=== PATIENT | female | born 1970 | race Caucasian/White ===

== ENCOUNTER 2016-10-06 23:12 | Emergency (ER) | payer OTHER ==
[~2016-10-06] VITALS: Ht 160 cm; Wt 85.0 kg
[~2016-10-06 23:12] MED LIST: ATEN25TA PO; BACL10TA PO; CELE1CAP8 PO; DULO1CAP3 PO; FEXO15TA PO; LYRI150C PO; MIRA25TA PO; OMEP20TA PO; TIZA4CAP3 PO; TOPI1TAB36 PO
[2016-10-06 23:19] VITALS: BP 123/71; PULSE 91; RESP 18; TEMP 98.6; O2SAT 99
--- NOTE | 2016-10-07 00:08 | PD ---
HPI Chief Complaint: Hip Injury Time Seen by Provider: 23:28 Travel History International Travel<30 days: No Contact w/Intl Traveler<30days: No Traveled to known affect area: No History of Present Illness HPI 45-year-old female complains of left hip pain. Patient fell off her wheelchair into the left side this afternoon. Patient denies loss of consciousness. Patient denies any headache or neck pain. Patient denies any chest pain or shortness of breath. Patient denies abdominal pain. Patient states the pain is sharp pain localized to left hip area patient denies any pain radiation. Patient has history of MS. Patient also has history of GERD and anemia. PFSH Past Medical History Arthritis: No Autoimmune Disease: Yes (PT HAS MS) Blood Disorders: No Anxiety: No Depression: Yes Heart Rhythm Problems: No Cancer: No Cardiovascular Problems: No High Cholesterol: No Chemotherapy: No Chest Pain: No Diabetes: No Diminished Hearing: No Endocrine: No Gastrointestinal Disorders: Yes GERD: Yes Genitourinary: Yes Hiatal Hernia: No Immune Disorder: Yes Kidney Stones: No Musculoskeletal: No Neurologic: Yes Psychiatric: Yes Reproductive: No Respiratory: Yes Immunizations Current: Yes Migraines: No Radiation Therapy: No Renal Failure: No Sleep Apnea: Yes Thyroid Disease: No Ulcer: No ?: Not Past Surgical History Abdominal Surgery: No AICD: No Arteriovenous Shunt: No Cardiac Surgery: No Ear Surgery: No Endocrine Surgery: No Eye Surgery: No Genitourinary Surgery: No Gynecologic Surgery: No Insulin Pump: No Joint Replacement: No Oral Surgery: No Pacemaker: No Thoracic Surgery: No Other Surgery: Yes (C SECTIONX2, T AND A, LEFT FOOT BONE REMOVAL , HEART ABLAISION) Social History Alcohol Use: No Tobacco Use: No Substance Use: No Allergies-Medications (Allergen,Severity, Reaction): Coded Allergies: Ofloxacin (Verified Allergy, Severe, STOMACH ACHE, 10/06/16) Uncoded Allergies: TAPE- ADHISIVE (Allergy, Mild, BLISTERS, 03/31/07) Reported Meds & Prescriptions Reported Meds & Active Scripts Active Reported Tecfidera (Dimethyl Fumarate) 240 Mg Cap 240 Mg PO BID Tizanidine (Tizanidine HCl) 4 Mg Cap 4 Mg PO DAILY Myrbetriq (Mirabegron) 25 Mg Tab 25 Mg PO DAILY Mayuri Allergy (Fexofenadine HCl) 180 Mg Tab 180 Mg PO DAILY Celecoxib 200 Mg Cap 200 Mg PO DAILY Topiramate 50 Mg Tab 50 Mg PO BID Duloxetine DR (Duloxetine HCl) 60 Mg Capdr 60 Mg PO DAILY Lyrica (Pregabalin) 150 Mg Cap 150 Mg PO BID Atenolol 25 Mg Tab 25 Mg PO BID Omeprazole 20 Mg Tab 20 Mg PO DAILY Baclofen 10 Mg Tab 10 Mg PO BID PRN Review of Systems General / Constitutional: No: Fever Eyes: No: Visual changes HENT: No: Headaches Cardiovascular: No: Chest Pain or Discomfort Respiratory: No: Shortness of Breath Gastrointestinal: No: Abdominal Pain Genitourinary: No: Dysuria Musculoskeletal: Positive: Pain Skin: No Rash Neurologic: No: Weakness Psychiatric: No: Depression Endocrine: No: Polydipsia Hematologic/Lymphatic: No: Easy Bruising Physical Exam Narrative GENERAL: Well-nourished, well-developed patient. SKIN: Warm and dry. HEAD: Normocephalic. EYES: No scleral icterus. No injection or drainage. NECK: Supple, trachea midline. No JVD or lymphadenopathy. CARDIOVASCULAR: Regular rate and rhythm without murmurs, gallops, or rubs. RESPIRATORY: Breath sounds equal bilaterally. No accessory muscle use. GASTROINTESTINAL: Abdomen soft, non-tender, nondistended. MUSCULOSKELETAL: Patient has moderate tenderness on palpation lateral aspect left hip joint. Limited range of motion the left hip joint secondary to pain. BACK: Nontender without obvious deformity. No CVA tenderness. Data Data Last Documented VS Vital Signs Date Time Temp Pulse Resp B/P Pulse Ox O2 Delivery O2 Flow Rate FiO2 10/06/16 23:22 99 Room Air 10/06/16 23:19 98.6 91 18 123/71 Orders Complete Blood Count With Diff (10/06/16 23:52) Comprehensive Metabolic Panel (10/06/16 23:52) Prothrombin Time / Inr (Pt) (10/06/16 23:52) Act Partial Throm Time (Ptt) (10/06/16 23:52) Chest, Single Ap (10/06/16 23:52) Iv Access Insert/Monitor (10/06/16 23:52) Ecg Monitoring (10/06/16 23:52) Oximetry (10/06/16 23:52) Hip, Uni(Ap&Lat) W Ap Pelvis (10/06/16 23:52) Labs Laboratory Tests Test 10/07/16 00:30 White Blood Count 10.2 TH/MM3 Red Blood Count 4.33 MIL/MM3 Hemoglobin 10.8 GM/DL Hematocrit 32.9 % Mean Corpuscular Volume 76.1 FL Mean Corpuscular Hemoglobin 24.9 PG Mean Corpuscular Hemoglobin 32.7 % Concent Red Cell Distribution Width 18.4 % Platelet Count 167 TH/MM3 Mean Platelet Volume 9.7 FL Neutrophils (%) (Auto) 76.6 % Lymphocytes (%) (Auto) 16.5 % Monocytes (%) (Auto) 6.1 % Eosinophils (%) (Auto) 0.5 % Basophils (%) (Auto) 0.3 % Neutrophils # (Auto) 7.8 TH/MM3 Lymphocytes # (Auto) 1.7 TH/MM3 Monocytes # (Auto) 0.6 TH/MM3 Eosinophils # (Auto) 0.1 TH/MM3 Basophils # (Auto) 0.0 TH/MM3 CBC Comment AUTO DIFF Differential Comment AUTO DIFF CONFIRMED Ovalocytes 1+ Prothrombin Time 10.6 SEC Prothromb Time International 1.0 RATIO Ratio Activated Partial 22.6 SEC Thromboplast Time Sodium Level 142 MEQ/L Potassium Level 3.7 MEQ/L Chloride Level 110 MEQ/L Carbon Dioxide Level 25.8 MEQ/L Anion Gap 6 MEQ/L Blood Urea Nitrogen 17 MG/DL Creatinine 0.67 MG/DL Estimat Glomerular Filtration 95 ML/MIN Rate Random Glucose 91 MG/DL Calcium Level 8.9 MG/DL Total Bilirubin 0.3 MG/DL Aspartate Amino Transf 14 U/L (AST/SGOT) Alanine Aminotransferase 21 U/L (ALT/SGPT) Alkaline Phosphatase 59 U/L Total Protein 7.0 GM/DL Albumin 3.5 GM/DL [facility] Medical Decision Making Medical Screen Exam Complete: Yes Emergency Medical Condition: Yes Interpretation(s) 2:17 AM. X-ray left hip shows no acute bony injury. CBC WBC 10.2. Hemoglobin 10.8 hematocrit 32.9. MCV 76. Normal differential. CMP within normal limit. Differential Diagnosis Differential diagnosis including contusion, fracture, dislocation. Narrative Course 45-year-old female with left hip injury status post fall off a wheelchair this afternoon. Diagnosis Primary Impression: Contusion of left hip Qualified Code: S70.02XA - Contusion of left hip, initial encounter Patient Instructions: General Instructions Additional Instructions: Take medication as needed for pain. Follow-up with orthopedist if persistent problem. Return if worse. Med/Other Pt SpecificInfo: Prescription(s) given Scripts Acetaminophen-Codeine (Tylenol-Codeine #3)300-30 mg Tab1 Tab PO Q6HR PRN (PAIN SCALE 1 TO 10) #20 TAB Prov:Ayaan Pena MD 10/07/16 Disposition: 01 DISCHARGE HOME Condition: Stable Ayaan Pena MD Oct 07, 2016 00:08
[2016-10-07] MEDS ORDERED: DIME240C PO (00:16)
--- NOTE | 2016-10-07 00:45 | RADRPT ---
EXAM DATE/TIME: 10/07/2016 00:34 [facility] COMPARISON: No previous studies available for comparison. INDICATIONS : Shortness of breath. MEDICAL HISTORY : Multiple sclerosis. SURGICAL HISTORY : None. ENCOUNTER: Initial ACUITY: 1 day PAIN SCORE: 0/10 LOCATION: Bilateral chest FINDINGS: A single view of the chest demonstrates the lungs to be symmetrically aerated without evidence of mas s, infiltrate or effusion. The cardiomediastinal contours are unremarkable. Osseous structures are intact. CONCLUSION: Normal examination. Charlie Hidalgo MD on October 07, 2016 at 0:43 Board Certified Radiologist. This report was verified electronically.
--- NOTE | 2016-10-07 00:45 | RADRPT ---
EXAM DATE/TIME: 10/07/2016 00:34 [facility] COMPARISON: No previous studies available for comparison. INDICATIONS : Left flank pain from a fall on a non ambulatory patient. MEDICAL HISTORY : Multiple sclerosis. SURGICAL HISTORY : None. ENCOUNTER: Initial ACUITY: 1 day PAIN SCORE: 8/10 LOCATION: Left flank hip FINDINGS: Examination of the left hip was performed with AP Pelvis. The primary and secondary trabecular patte rn of the femoral neck is intact. The hip joint is of normal width without significant sclerosis or bony hypertrophy. The acetabulum is grossly intact. CONCLUSION: No acute disease. Charlie Hidalgo MD on October 07, 2016 at 0:43 Board Certified Radiologist. This report was verified electronically.
[2016-10-07 00:47] LABS: AUTOMATED NEUTROPHIL # 7.8 TH/MM3 (1.8-7.7); BASOPHIL % 0.3 % (0.0-2.0); EOSINOPHIL # 0.1 TH/MM3 (0-0.4); EOSINOPHIL % 0.5 % (0.0-4.0); HEMATOCRIT 32.9 % (35.0-46.0); LYMPH % 16.5 % (9.0-44.0); LYMPHOCYTE # 1.7 TH/MM3 (1.0-4.8); MEAN CELL VOLUME 76.1 FL (80.0-100.0); MEAN CORPUSCULAR HEMOGLOBIN 24.9 PG (27.0-34.0); MEAN CORPUSCULAR HGB CONC 32.7 % (32.0-36.0); MONO % 6.1 % (0.0-8.0); NEUT % 76.6 % (16.0-70.0); PLATELET COUNT 167 TH/MM3 (150-450); RED BLOOD COUNT 4.33 MIL/MM3 (4.00-5.30); RED CELL DISTRIBUTION WIDTH 18.4 % (11.6-17.2); WHITE BLOOD COUNT 10.2 TH/MM3 (4.0-11.0)
[2016-10-07 00:57] LABS: HEMO FLAGS AUTO DIFF
[2016-10-07 01:03] LABS: APTT (PATIENT) 22.6 SEC (24.3-30.1); PROTHROMBIN TIME - PATIENT 10.6 SEC (9.8-11.6)
[2016-10-07 01:05] LABS: ALT (GPT) 21 U/L (10-53); ANION GAP 6 MEQ/L (5-15); AST (GOT) 14 U/L (15-37); BICARBONATE 25.8 MEQ/L (21.0-32.0); BLOOD UREA NITROGEN 17 MG/DL (7-18); CHLORIDE 110 MEQ/L (98-107); GLOMERULAR FILTRATION RATE 95 ML/MIN (>89); POTASSIUM 3.7 MEQ/L (3.5-5.1); SODIUM (NA) 142 MEQ/L (136-145)
[2016-10-07 01:08] LABS: ALKALINE PHOSPHATASE 59 U/L (45-117); TOTAL BILIRUBIN ADULT 0.3 MG/DL (0.2-1.0)
[2016-10-07 02:07] LABS: OVALOCYTES 1+ (NORMAL); SCAN/DIFF AUTO DIFF CONFIRMED
[2016-10-07 02:27] VITALS: O2SAT 97
[2016-10-07] MEDS ORDERED: TYLETAB34 PO (02:28)
== END 2016-10-07 10:09 | disposition home or self-care (01) ==
LOC: NEPE 23:12
DX: S70.02XA Contusion of left hip, initial encounter (principal); W05.0XXA Fall from non-moving wheelchair, initial encounter
CPT/HCPCS: 71010; 73502; 80053; 85025; 85610; 85730; 99284